=== PATIENT | female | born 2000 | race Caucasian/White ===

== ENCOUNTER → 2019-06-25 14:02 | Outpatient (CLI) | payer MEDICAID, SELFPAY ==
[2019-06-25 13:56] VITALS: BMI 36.6
--- NOTE | 2019-06-25 14:02 | RAD_ITS ---
STUDY: X-RAY - RIGHT HAND REASON FOR EXAM: Female, 19 years old. FRACTURE TECHNIQUE: 3 view(s) of the hand. COMPARISON: None. FINDINGS: Normal radiocarpal articulation. Normal distal radioulnar joint. Normal visualized carpal bones. Normal carpal articulations Normal carpometacarpal articulation of the thumb. Normal second through fifth carpometacarpal joints. Nondisplaced transverse fracture of the distal aspect of the fifth metacarpal with the dorsal angulation. This is in keeping with a boxer type fracture. Normal metacarpophalangeal joint of the thumb. Normal interphalangeal joint of the thumb. Normal proximal and distal phalanges of the thumb. Normal metacarpophalangeal joints of the second through fifth fingers. Normal proximal and distal interphalangeal joints of the second through fifth fingers. Normal phalanges of the second through fifth fingers. Soft tissue swelling. RAD/Hand Min 3 Views IMPRESSION: Boxer type fracture of the distal fifth metacarpal with dorsal angulation and soft tissue swelling. Electronically Signed: Dom Kelsey, at 14:44 EDT , Service support ,
== END ==
PROVIDERS: Referring Provider Physician Assistant; Visit Provider Physician Assistant
DX: S62.346A Nondisplaced fracture of base of fifth metacarpal bone, right hand, initial encounter for closed fracture (principal); X58.XXXA Exposure to other specified factors, initial encounter
CPT/HCPCS: 73130

== ENCOUNTER → 2019-06-25 14:29 | Outpatient (CLI) | payer MEDICAID, SELFPAY ==
[2019-06-25 13:56] VITALS: BMI 36.6
--- NOTE | 2019-06-25 14:29 | RAD_ITS ---
STUDY: X-RAY - RIGHT HAND REASON FOR EXAM: Female, 19 years old. Post cast. Lateral and oblique views only of hand requested TECHNIQUE: 2 view(s) of the hand were obtained in the plaster cast.. COMPARISON: Comparison is made with prior examination done earlier today. FINDINGS: Normal radiocarpal articulation. Normal distal radioulnar joint. Normal visualized carpal bones. Normal carpal articulations Normal carpometacarpal articulation of the thumb. Normal second through fifth carpometacarpal joints. Stable appearance of the fracture of the distal fifth metacarpal with dorsal angulation. Normal metacarpophalangeal joint of the thumb. Normal interphalangeal joint of the thumb. Normal proximal and distal phalanges of the thumb. Normal metacarpophalangeal joints of the second through fifth fingers. Normal proximal and distal interphalangeal joints of the second through fifth fingers. Normal phalanges of the second through fifth fingers. The soft tissue structures are unremarkable. RAD/Hand 2 Views IMPRESSION: Stable alignment of the boxer type fracture. Electronically Signed: Dom Kelsey, at 14:53 EDT , Service support ,
== END ==
PROVIDERS: Referring Provider Physician Assistant; Visit Provider Physician Assistant
DX: S62.346A Nondisplaced fracture of base of fifth metacarpal bone, right hand, initial encounter for closed fracture (principal); X58.XXXA Exposure to other specified factors, initial encounter
CPT/HCPCS: 73120; 73130

== ENCOUNTER → 2019-06-25 15:02 | Outpatient (CLI) | payer MEDICAID, SELFPAY ==
[2019-06-25 13:56] VITALS: BMI 36.6
--- NOTE | 2019-06-25 15:05 | RAD_ITS ---
STUDY: X-RAY - RIGHT HAND REASON FOR EXAM: Female, 19 years old. post cast #2, oblique and lateral views only requested TECHNIQUE: 2 view(s) of the hand. COMPARISON: None. FINDINGS: Exam is limited due to superimposition of contrast material. Otherwise normal radiocarpal articulation. Normal distal radioulnar joint. Normal visualized carpal bones. Normal carpal articulations Normal carpometacarpal articulation of the thumb. Normal second through fifth carpometacarpal joints. Redemonstrated is fracture through the fifth metacarpal bone distally, stable in the interval. Otherwise normal metacarpi. Normal metacarpophalangeal joint of the thumb. Normal interphalangeal joint of the thumb. Normal proximal and distal phalanges of the thumb. Normal metacarpophalangeal joints of the second through fifth fingers. Normal proximal and distal interphalangeal joints of the second through fifth fingers. Normal phalanges of the second through fifth fingers. The soft tissue structures are unremarkable. RAD/Hand 2 Views IMPRESSION: Unchanged fifth metacarpal bone fracture distally. Electronically Signed: Angi Cartagena MD at 1:02 EDT , Service support ,
== END ==
PROVIDERS: Referring Provider Physician Assistant; Visit Provider Physician Assistant
DX: S62.346A Nondisplaced fracture of base of fifth metacarpal bone, right hand, initial encounter for closed fracture (principal); X58.XXXA Exposure to other specified factors, initial encounter
CPT/HCPCS: 73120; 73130